=== PATIENT | male | born 1940 | race Caucasian/White ===

== ENCOUNTER → 2017-05-31 | Outpatient (CLI) | payer OTHER | LOC: RAD 08:07 | DX: R06.02 Shortness of breath (principal); R60.1 Generalized edema; R05 Cough ==

== ENCOUNTER → 2017-11-12 | Outpatient (CLI) | payer OTHER | LOC: EDSTATUS 10:03 → CAT 10:03 | DX: R91.8 Other nonspecific abnormal finding of lung field (principal) ==

== ENCOUNTER → 2018-05-15 | Outpatient (CLI) | payer OTHER | LOC: RAD 08:29 | DX: R06.02 Shortness of breath (principal) ==